=== PATIENT | female | born 1940 ===

== ENCOUNTER 2023-11-29 09:00 | Inpatient (IN) | payer OTHER ==
[~2023-11-29] VITALS: Ht 175.3 cm; Wt 84.8 kg
[2023-11-29 10:27] LABS: HEMATOCRIT 36.1 % (36.0-45.00); HEMOGLOBIN 12.5 g/dL (12.0-15.00); MEAN CELL VOLUME 87.5 fL (80.00-100.00); MEAN CORPUSCULAR HEMOGLOBIN 30.3 pg (27.00-32.0); MEAN CORPUSCULAR HGB CONC 34.6 g/dl (32.0-36.0); PLATELET COUNT 172 K/uL (150-450); RED BLOOD COUNT 4.12 M/uL (4.00-6.00); RED CELL DISTRIBUTION WIDTH 13.3 % (11.5-14.5)
[2023-11-29 10:51] LABS: INR 1.05; PARTIAL THROMBOPLASTIN TIME 27.6 SECONDS (22.0-34.0); PROTHROMBIN TIME 11.4 SECONDS (9.0-11.5)
[2023-11-29] MEDS ORDERED: IRBESARTAN-HCT1 EACH PO (11:02)
[2023-11-29] MEDS ORDERED: ZOCOR20 MG PO (11:02)
[2023-11-29] MEDS ORDERED: CHILDREN'S ASPI81 MG PO (11:02)
[2023-11-29] MEDS ORDERED: OMEGA-31000 MG PO (11:02)
[2023-11-29 11:03] VITALS: BP 140/86
[2023-11-29 11:14] LABS: BILIRUBIN TOTAL 0.83 mg/dL (0.3-1.2); CALCIUM 9.4 mg/dL (8.5-10.1); CREATININE SERUM 0.8 mg/dL (0.55-1.02); GFR 68.84; GLOBULINA 3.3 G/DL (2.4-3.5); POTASSIUM 4.14 mEq/L (3.5-5.1); TOTAL PROTEIN 7.3 gm/dL (6.4-8.2)
[2023-11-29 12:02] LABS: URINE APPEARANCE Clear; URINE BILIRRUBIN Negative (NEGATIVE); URINE BLOOD Negative; URINE COLOR Yellow; URINE GLUCOSE Negative (NEGATIVE); URINE KETONE Negative (NEGATIVE); URINE LEUKOCYTE Negative; URINE NITRATE Negative; URINE PROTEIN Negative (NEGATIVE); URINE UROBILINOGEN 0.2 E.U./dl
[2023-11-29 12:08] LABS: URINE BACTERIA 84.3 uL (0.0-1933); URINE EPITHELIAL CELLS 3.2 uL (0.0-38.8)
[2023-11-29 12:13] LABS: URINE RBC 1.6 uL (0.0-20.8); URINE WBC 0.3 uL (0.0-23.2)
[2023-12-04] MEDS ORDERED: POVIDONE-IODINE 118 ML BOTT TOP ONE (07:13)
[2023-12-04] MEDS ORDERED: CEFAZOLIN SODIUM 1,000 MG VIAL ONE (07:30)
[2023-12-04] MEDS ORDERED: CEFAZOLIN SODIUM 1,000 MG VIAL IV SCH ×2 (08:30→17:00)
[2023-12-04] MEDS ORDERED: POVIDONE-IODINE 118 ML BOTT TOP SCH (08:30)
[2023-12-04 13:31] VITALS: BP 140/84
[2023-12-04] MEDS ORDERED: RINGERS SOLUTION,LACTATED 1,000 ML IV SCH (13:34)
[2023-12-04 16:17] VITALS: BP 150/80
[2023-12-04] MEDS ORDERED: PROMETHAZINE HCL 25 MG/ML AMPUL IM SCH (18:00)
[2023-12-04] MEDS ORDERED: MEPERIDINE HCL/PF 50 MG/ML VIAL IM SCH (18:00)
[2023-12-04 20:31] VITALS: BP 121/69
[2023-12-05] VITALS: BP 102/67
[2023-12-05 08:00] VITALS: BP 113/72
[2023-12-05] MEDS ORDERED: KETOROLAC TROMETHAMINE 10 MG TABLET PO SCH (09:00)
== END 2023-12-05 13:08 | disposition home or self-care (01) | DRG 748 ==
LOC: O/R 12-04 05:15 → OB/GYN 12-04 05:15 → SURH 12-04 07:00 → OB/GYN 12-04 11:06
PROVIDERS: ADMIT Obstetrics & Gynecology; ATTEND Obstetrics & Gynecology
PROC: 0JQC0ZZ Repair Pelvic Region Subcutaneous Tissue and Fascia, Open Approach (ICD-10-PCS; 2023-12-04)
PROC: 0JQC0ZZ Repair Pelvic Region Subcutaneous Tissue and Fascia, Open Approach (ICD-10-PCS; principal; 2023-12-04 07:00)
DX: N81.11 Cystocele, midline (principal); N81.6 Rectocele; Z20.822 Contact with and (suspected) exposure to COVID-19